=== PATIENT | male | born 1950 | race Caucasian/White ===

== ENCOUNTER → 2018-01-10 | Outpatient (CLI) | payer OTHER ==
[~2018-01-10] MED LIST: COZAAR 50 MG TA50 M2 PO; MELATONIN3 MG PO; NORVASC5 MG PO; TYLENOL EXTRA500 MG PO
--- NOTE | ~2018-01-10 | EKG ---
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
== END | disposition home or self-care (01) ==
LOC: LITH 06:21
DX: N20.0 Calculus of kidney (principal); I10 Essential (primary) hypertension; Z98.890 Other specified postprocedural states